=== PATIENT | male | born 1985 | race Caucasian/White ===

== ENCOUNTER 2017-11-30 18:06 | Emergency (ER) | payer SELFPAY ==
[~2017-11-30] VITALS: Ht 172.7 cm; Wt 104.1 kg
[2017-11-30 19:50] LABS: HEMATOCRIT 45.8 % (38.0-50.0); HEMOGLOBIN 15.7 G/DL (12.5-16.6); MCH 28.8 PG (29.0-34.0); MCHC 34.3 G/DL (30.0-36.0); MCV 83.9 FL (86-99); PLATELET COUNT 303 K/uL (156-360); RBC DIS.WIDTH-CV 13.2 % (11.8-14.6); RBC DIS.WIDTH-SD 40.1 % (39-53); RED BLOOD COUNT 5.46 M/uL (4.00-5.50); WHITE BLOOD COUNT 9.1 K/uL (4.1-10.2)
[2017-11-30 20:14] LABS: CHLORIDE 106 mEq/L (99-109); POTASSIUM 4.1 mEq/L (3.7-5.4); SODIUM 138 mEq/L (136-147)
[2017-11-30 20:16] LABS: GLUCOSE 95 mg/dL (70-99)
[2017-11-30 20:19] LABS: CREATININE 1.3 mg/dL (0.6-1.3)
[2017-11-30 20:20] LABS: UREA NITROGEN (BUN) 14 mg/dL (9-23)
[2017-11-30 20:24] LABS: TROP-I INTERPRETATION NEGATIVE; TROPONIN-I < 0.01 ng/mL (0.0-0.30)
[2017-11-30 20:27] LABS: GFR ESTIMATE (CALCULATED) > 59 mL/min/ (58.99-99999)
[2017-11-30 21:15] VITALS: BP 160/112
== END 2017-11-30 21:15 | disposition left against medical advice (07) ==
LOC: EME 18:06
DX: R07.9 Chest pain, unspecified (principal); R20.0 Anesthesia of skin; R06.02 Shortness of breath; Z82.49 Family history of ischemic heart disease and other diseases of the circulatory system; Z82.3 Family history of stroke; Z53.20 Procedure and treatment not carried out because of patient's decision for unspecified reasons
CPT/HCPCS: 71046; 80048; 84484; 85027; 93005; 99281; 99282